=== PATIENT | male | born 1975 | race Caucasian/White ===

== ENCOUNTER → 2017-01-13 | Outpatient (CLI) | payer BC ==
--- NOTE | 2017-01-13 14:26 | Diagnostic Imaging Report ---
EXAMINATION: KUB. INDICATION: Left-sided pain. FINDINGS: There is a 6 mm calcification projecting over the left flank which may relate to a lower pole left kidney stone. No definite ureteric stone is seen. Calcifications on the right side of the pelvis are likely phleboliths. IMPRESSION: A 6 mm left flank calcification could be a kidney stone. Dictated by: Dictated on workstation # [id number]
== END ==
LOC: RAD 10:54
PROVIDERS: ATTEND Nurse Practitioner Family
DX: Z09 Encounter for follow-up examination after completed treatment for conditions other than malignant neoplasm (principal); Z87.442 Personal history of urinary calculi
CPT/HCPCS: 74000